=== PATIENT | male | born 1985 | race Caucasian/White ===

== ENCOUNTER 2019-08-10 00:43 | Emergency (ER) | payer MEDICAID ==
[~2019-08-10] VITALS: Ht 177.8 cm; Wt 91.0 kg
[2019-08-10] MEDS ORDERED: PROPOFOL 200MG/20ML VIAL IV ONE (01:15)
[2019-08-10] MEDS ORDERED: MORPHINE SULFATE 4 MG/ML CPJ (NOT FOR IM USE) IV ONE (01:15)
[2019-08-10] MEDS ORDERED: ONDANSETRON HCL 4MG/2ML INJ IV ONE (01:15)
[2019-08-10 04:00] VITALS: BP 108/40
== END 2019-08-10 05:57 | disposition home or self-care (01) ==
LOC: ER 00:43
DX: S43.084A Other dislocation of right shoulder joint, initial encounter (principal); X58.XXXA Exposure to other specified factors, initial encounter; Y93.89 Activity, other specified; Y92.89 Other specified places as the place of occurrence of the external cause
CPT/HCPCS: 23650; 73020; 73030; 94640; 96374; 96375; 99152; 99285; J2270; J2405; J2704